=== PATIENT | male | born 1960 | race Caucasian/White ===

== ENCOUNTER 2022-04-09 17:22 | Emergency (ER) | payer OTHER ==
[2022-04-09] MEDS ORDERED: Cephalexin 500 MG Cap PO STA (17:40)
== END 2022-04-09 18:10 | disposition home or self-care (01) ==
LOC: FB.ED 17:22
DX: T24.121A Burn of first degree of right knee, initial encounter (principal); Z79.84 Long term (current) use of oral hypoglycemic drugs; Z79.899 Other long term (current) drug therapy; X19.XXXA Contact with other heat and hot substances, initial encounter
CPT/HCPCS: 99283; A9270; 99281